=== PATIENT | male | born 1985 | race Caucasian/White ===

== ENCOUNTER 2018-04-07 13:57 | Emergency (ER) | payer MEDICAID, OTHER ==
[~2018-04-07] VITALS: Ht 368.3 cm; Wt 81.8 kg
[2018-04-07 15:25] LABS: BASOPHILS # (AUTO) 0.1 X10'3 (0-0.2); BASOPHILS % (AUTO) 1.5 % (0-1); EOSINOPHILS # (AUTO) 0.2 X10'3 (0-0.9); EOSINOPHILS % (AUTO) 2.3 % (0-6); HEMATOCRIT 47.3 % (42.0-52.0); HEMOGLOBIN 15.6 g/dl (14.0-17.9); LYMPHOCYTES # (AUTO) 1.6 X10'3 (1.1-4.8); LYMPHOCYTES % (AUTO) 20.7 % (21-51); MEAN CORPUSCULAR HEMOGLOBIN 30.3 PG (27.0-31.0); MEAN CORPUSCULAR HGB CONC 32.9 % (33.0-36.5); MEAN CORPUSCULAR VOLUME 91.9 FL (78-98); MEAN PLATELET VOLUME 7.5 FL (7.4-10.4); MONOCYTES # (AUTO) 0.7 X10'3 (0-0.9); MONOCYTES % (AUTO) 9.1 % (2-12); NEUTROPHILS # (AUTO) 5.3 X10'3 (1.8-7.7); NEUTROPHILS % (AUTO) 66.4 % (42-75); PLATELET COUNT 313 X10'3 (140-440); RED BLOOD COUNT 5.15 X10'6 (4.70-6.10); RED CELL DISTRIBUTION WIDTH 13.8 % (11.5-14.5); WHITE BLOOD COUNT 7.9 X10'3 (4.5-11.0)
[2018-04-07 15:37] LABS: ALANINE AMINOTRANSFERASE 21 U/L (12-78); ALBUMIN 4.1 G/DL (3.4-5.0); ALBUMIN/GLOBULIN RATIO 1.4 (1.1-1.5); ALKALINE PHOSPHATASE 61 IU/L (46-116); ANION GAP 8 (8-16); ASPARTATE AMINO TRANSFERASE 14 U/L (10-37); BILIRUBIN,TOTAL 0.4 MG/DL (0.1-1.0); BLOOD UREA NITROGEN 14 MG/DL (7-18); BUN/CREATININE RATIO 16.5 (5.4-32.0); CALCIUM 8.4 MG/DL (8.5-10.1); CHLORIDE 104 MMOL/L (99-107); CREATININE 0.85 MG/DL (0.60-1.10); GLUCOSE 53 MG/DL (70-104); POTASSIUM 3.5 MMOL/L (3.5-5.1); SODIUM 143 MMOL/L (135-145); TOTAL CARBON DIOXIDE 31.2 MMOL/L (24-32); TOTAL PROTEIN 7.1 G/DL (6.4-8.2); eGFR > 90 ML/MIN
[2018-04-07 15:44] LABS: ETHANOL < 0.010 GM/DL (0.0-0.010)
[2018-04-07] MEDS ORDERED: NO HOME MEDS (16:02)
[2018-04-07] MEDS ORDERED: OLANZapine 5mg rapidly disint. tablet PO ONE ×2 (17:50→22:30)
[2018-04-07 18:01] LABS: CLARITY,URINE CLEAR (Clear); COLOR,URINE YELLOW (Yellow); GLUCOSE, URINE NEGATIVE (Neg); KETONES,URINE NEGATIVE (Neg); LEUKOCYTE ESTERASE ,URINE NEGATIVE (Neg); NITRITES, URINE NEGATIVE (Neg); OCCULT BLOOD,URINE NEGATIVE (Neg); PH,URINE 6.5 (4.8-8.0); PROTEIN,URINE NEGATIVE (Neg); UROBILINOGEN,URINE 0.2 E.U/dL (0.2-1.0)
[2018-04-07 18:06] LABS: UA COLLECTION TYPE CLN CATCH MIDSTREAM
[2018-04-07 18:11] LABS: URINE AMPHETAMINE SCREEN NEGATIVE (Neg); URINE BARBITUATE SCREEN NEGATIVE (Neg); URINE BENZODIAZEPINES SCREEN POSITIVE (Neg); URINE CANNABINOID SCREEN NEGATIVE (Neg); URINE COCAINE SCREEN NEGATIVE (Neg); URINE METHADONE SCREEN NEGATIVE (Neg); URINE OPIATE SCREEN NEGATIVE (Neg); URINE PHENCYCLIDINE SCREEN NEGATIVE (Neg)
[2018-04-07] MEDS ORDERED: nicotine 21mg patch - 24 hr TD ONE (21:00)
[2018-04-08] MEDS ORDERED: OLANZapine 2.5MG tablet PO SCH (08:00)
[2018-04-08 11:21] VITALS: BP 97/64
== END 2018-04-08 09:00 ==
LOC: ER 13:57
DX: F20.89 Other schizophrenia (principal); R45.850 Homicidal ideations; F41.9 Anxiety disorder, unspecified; F32.9 Major depressive disorder, single episode, unspecified; Z56.0 Unemployment, unspecified
CPT/HCPCS: 36415; 80053; 80305; 80320; 81003; 85025; 99285

== ENCOUNTER 2018-05-27 18:32 | Emergency (ER) | payer MEDICAID, OTHER ==
[~2018-05-27] VITALS: Ht 185.4 cm; Wt 77.3 kg
[~2018-05-27 18:32] MED LIST: NO HOME MEDS
[2018-05-27 19:42] LABS: BASOPHILS # (AUTO) 0.1 X10'3 (0-0.2); BASOPHILS % (AUTO) 0.9 % (0-1); EOSINOPHILS # (AUTO) 0.3 X10'3 (0-0.9); EOSINOPHILS % (AUTO) 3.1 % (0-6); HEMATOCRIT 42.7 % (42.0-52.0); HEMOGLOBIN 14.4 g/dl (14.0-17.9); LYMPHOCYTES # (AUTO) 2.2 X10'3 (1.1-4.8); LYMPHOCYTES % (AUTO) 25.2 % (21-51); MEAN CORPUSCULAR HEMOGLOBIN 30.5 PG (27.0-31.0); MEAN CORPUSCULAR HGB CONC 33.8 % (33.0-36.5); MEAN CORPUSCULAR VOLUME 90.2 FL (78-98); MEAN PLATELET VOLUME 7.7 FL (7.4-10.4); MONOCYTES # (AUTO) 0.9 X10'3 (0-0.9); MONOCYTES % (AUTO) 10.8 % (2-12); NEUTROPHILS # (AUTO) 5.2 X10'3 (1.8-7.7); PLATELET COUNT 277 X10'3 (140-440); RED BLOOD COUNT 4.73 X10'6 (4.70-6.10); RED CELL DISTRIBUTION WIDTH 13.9 % (11.5-14.5); WHITE BLOOD COUNT 8.6 X10'3 (4.5-11.0)
[2018-05-27 19:53] LABS: ALANINE AMINOTRANSFERASE 33 U/L (12-78); ALBUMIN 3.7 G/DL (3.4-5.0); ALBUMIN/GLOBULIN RATIO 1.3 (1.1-1.5); ALKALINE PHOSPHATASE 75 IU/L (46-116); ANION GAP 8 (8-16); ASPARTATE AMINO TRANSFERASE 52 U/L (10-37); BILIRUBIN,TOTAL 0.3 MG/DL (0.1-1.0); BLOOD UREA NITROGEN 17 MG/DL (7-18); BUN/CREATININE RATIO 16.5 (5.4-32.0); CALCIUM 8.3 MG/DL (8.5-10.1); CHLORIDE 103 MMOL/L (99-107); CREATININE 1.03 MG/DL (0.60-1.10); GLUCOSE 76 MG/DL (70-104); POTASSIUM 3.4 MMOL/L (3.5-5.1); SODIUM 142 MMOL/L (135-145); TOTAL CARBON DIOXIDE 30.9 MMOL/L (24-32); TOTAL PROTEIN 6.6 G/DL (6.4-8.2); eGFR 83 ML/MIN
[2018-05-27 20:09] LABS: ETHANOL < 0.010 GM/DL (0.0-0.010)
[2018-05-27 20:39] LABS: URINE AMPHETAMINE SCREEN NEGATIVE (Neg); URINE BARBITUATE SCREEN NEGATIVE (Neg); URINE BENZODIAZEPINES SCREEN NEGATIVE (Neg); URINE CANNABINOID SCREEN POSITIVE (Neg); URINE COCAINE SCREEN NEGATIVE (Neg); URINE METHADONE SCREEN NEGATIVE (Neg); URINE OPIATE SCREEN NEGATIVE (Neg); URINE PHENCYCLIDINE SCREEN NEGATIVE (Neg)
[2018-05-27] MEDS ORDERED: potassium Cl 20 mEq SR tablet PO STA (21:28)
[2018-05-27] MEDS ORDERED: LORazepam 1 MG tablet PO ONE (21:55)
[2018-05-27 22:23] VITALS: BP 133/72
== END 2018-05-27 22:47 | disposition home or self-care (01) ==
LOC: ER 18:33
DX: F25.9 Schizoaffective disorder, unspecified (principal); E87.6 Hypokalemia; F41.9 Anxiety disorder, unspecified; F32.9 Major depressive disorder, single episode, unspecified; F15.90 Other stimulant use, unspecified, uncomplicated; Z56.0 Unemployment, unspecified
CPT/HCPCS: 36415; 80053; 80305; 80320; 84443; 85025; 99284

== ENCOUNTER 2019-02-13 15:18 | Emergency (ER) | payer MEDICAID ==
[~2019-02-13] VITALS: Ht 185.4 cm; Wt 85.9 kg
[~2019-02-13 15:18] MED LIST changes: +CLOT15CR5 TOP; +CLOT15CR73 TP
[2019-02-13 15:25] VITALS: BP 152/95
[2019-02-13] MEDS ORDERED: ibuprofen tablet 400 MG TABLET PO ONE (15:35)
[2019-02-13] MEDS ORDERED: CLOT15CR73 TP (15:36)
--- NOTE | 2019-02-13 16:05 | NUR ---
Pt seen, assessed, and treated in triage by PA. Medicated by RN and discharged from [facility].
== END 2019-02-13 16:06 | disposition home or self-care (01) ==
LOC: ER 15:19
DX: M79.672 Pain in left foot (principal); M79.671 Pain in right foot; F41.9 Anxiety disorder, unspecified; F32.9 Major depressive disorder, single episode, unspecified; F20.9 Schizophrenia, unspecified; F12.90 Cannabis use, unspecified, uncomplicated; F15.90 Other stimulant use, unspecified, uncomplicated; F10.99 Alcohol use, unspecified with unspecified alcohol-induced disorder; Z56.0 Unemployment, unspecified; Z88.8 Allergy status to other drugs, medicaments and biological substances; Z79.899 Other long term (current) drug therapy; Y90.9 Presence of alcohol in blood, level not specified
CPT/HCPCS: 99283

== ENCOUNTER 2019-03-02 14:59 | Emergency (ER) | payer MEDICAID | END 2019-03-02 16:07 | disposition left against medical advice (07) | LOC: ER 15:00 | DX: M79.673 Pain in unspecified foot (principal); Z53.21 Procedure and treatment not carried out due to patient leaving prior to being seen by health care provider; Z79.899 Other long term (current) drug therapy ==

== ENCOUNTER 2019-07-01 04:52 | Emergency (ER) | payer MEDICAID, OTHER ==
[~2019-07-01] VITALS: Ht 185.4 cm; Wt 81.8 kg
[2019-07-01] MEDS ORDERED: ondansetron 4mg rapidly disintigrating tab PO ONE (05:00)
[2019-07-01] MEDS ORDERED: AZIT-63 PO (05:04)
[2019-07-01] MEDS ORDERED: BENZ-16 PO (05:04)
[2019-07-01] MEDS ORDERED: azithromycin 250mg tablet PO ONE (05:05)
[2019-07-01] MEDS ORDERED: benzonatate 100mg capsule PO ONE (05:05)
[2019-07-01 05:35] VITALS: BP 133/82
== END 2019-07-01 05:38 | disposition home or self-care (01) ==
LOC: ER 04:53
DX: J06.9 Acute upper respiratory infection, unspecified (principal); R11.0 Nausea; F41.9 Anxiety disorder, unspecified; F32.9 Major depressive disorder, single episode, unspecified; F20.9 Schizophrenia, unspecified; F12.90 Cannabis use, unspecified, uncomplicated; F15.90 Other stimulant use, unspecified, uncomplicated; Z88.8 Allergy status to other drugs, medicaments and biological substances; Z79.2 Long term (current) use of antibiotics; Z79.899 Other long term (current) drug therapy; Z59.0 Homelessness; Z56.0 Unemployment, unspecified
CPT/HCPCS: 99284

== ENCOUNTER 2019-07-10 02:22 | Emergency (ER) | payer MEDICAID, OTHER ==
[~2019-07-10] VITALS: Ht 185.4 cm; Wt 81.8 kg
[~2019-07-10 02:22] MED LIST changes: +AZIT-63 PO; +BENZ-16 PO
[2019-07-10 02:32] VITALS: BP 130/87
[2019-07-10] MEDS ORDERED: PRED20TA PO (02:50)
[2019-07-10] MEDS ORDERED: ALBU18HF2 INH (02:50)
[2019-07-10] MEDS ORDERED: DOXY100C43 PO (02:50)
== END 2019-07-10 03:09 | disposition home or self-care (01) ==
LOC: ER 02:23
DX: J20.9 Acute bronchitis, unspecified (principal); F12.90 Cannabis use, unspecified, uncomplicated; F41.9 Anxiety disorder, unspecified; F32.9 Major depressive disorder, single episode, unspecified; F15.90 Other stimulant use, unspecified, uncomplicated; F17.298 Nicotine dependence, other tobacco product, with other nicotine-induced disorders; Z59.0 Homelessness; Z56.0 Unemployment, unspecified; Z88.8 Allergy status to other drugs, medicaments and biological substances; Z79.2 Long term (current) use of antibiotics; Z79.899 Other long term (current) drug therapy
CPT/HCPCS: 99283; 99406

== ENCOUNTER 2019-07-10 17:20 | Emergency (ER) | payer MEDICAID, OTHER ==
[~2019-07-10] VITALS: Ht 185.4 cm; Wt 72.0 kg
[~2019-07-10 17:20] MED LIST changes: +ALBU18HF2 INH; +DOXY100C43 PO; +PRED20TA PO
--- NOTE | 2019-07-10 18:54 | NUR ---
FILLED OUT INDIGENT MED FORM FOR PHARMACY.
[2019-07-10 19:21] VITALS: BP 126/89
== END 2019-07-10 19:23 | disposition home or self-care (01) ==
LOC: ER 17:20
DX: J20.9 Acute bronchitis, unspecified (principal); Z76.0 Encounter for issue of repeat prescription; F41.9 Anxiety disorder, unspecified; F32.9 Major depressive disorder, single episode, unspecified; F12.90 Cannabis use, unspecified, uncomplicated; F15.90 Other stimulant use, unspecified, uncomplicated; Z59.0 Homelessness; Z56.0 Unemployment, unspecified; Z88.8 Allergy status to other drugs, medicaments and biological substances; Z79.2 Long term (current) use of antibiotics; Z79.899 Other long term (current) drug therapy
CPT/HCPCS: 99281

== ENCOUNTER 2019-08-15 02:34 | Emergency (ER) | payer MEDICAID, OTHER ==
[~2019-08-15] VITALS: Ht 185.4 cm; Wt 81.1 kg
[~2019-08-15 02:34] MED LIST changes: -AZIT-63 PO; -BENZ-16 PO; -DOXY100C43 PO; -PRED20TA PO
[2019-08-15 02:35] VITALS: BP 134/88
--- NOTE | 2019-08-15 02:43 | NUR ---
Patient was getting his ekg and he was asked to hold still. He then said. "Can you guys give me a blanket or something. Or, like, something to chill me out." We asked him to hold still for the ekg and he then said "Well....you technically work for me." He was informed that this was not how any of this worked and his attitude and words to staff are not appreciated. informed.
== END 2019-08-15 02:53 | disposition home or self-care (01) ==
LOC: ER 02:35
DX: R53.1 Weakness (principal); F41.9 Anxiety disorder, unspecified; F32.9 Major depressive disorder, single episode, unspecified; F20.9 Schizophrenia, unspecified; F12.90 Cannabis use, unspecified, uncomplicated; F15.90 Other stimulant use, unspecified, uncomplicated; Z59.0 Homelessness; Z56.0 Unemployment, unspecified; Z88.8 Allergy status to other drugs, medicaments and biological substances; Z79.899 Other long term (current) drug therapy
CPT/HCPCS: 93005; 99283

== ENCOUNTER 2020-06-15 18:03 | Emergency (ER) | payer MEDICAID, OTHER ==
[~2020-06-15] VITALS: Ht 185.4 cm; Wt 81.8 kg
[~2020-06-15 18:03] MED LIST changes: +CLOT15CR35 TOP; -CLOT15CR5 TOP
[2020-06-15 18:13] VITALS: BP 153/109
== END 2020-06-15 19:12 | disposition home or self-care (01) ==
LOC: ER 18:03
DX: R09.89 Other specified symptoms and signs involving the circulatory and respiratory systems (principal); R51.9 Headache, unspecified; R43.8 Other disturbances of smell and taste; Z20.828 Contact with and (suspected) exposure to other viral communicable diseases; F41.9 Anxiety disorder, unspecified; F32.9 Major depressive disorder, single episode, unspecified; F20.9 Schizophrenia, unspecified; F12.90 Cannabis use, unspecified, uncomplicated; F15.90 Other stimulant use, unspecified, uncomplicated; Z72.89 Other problems related to lifestyle; Z56.0 Unemployment, unspecified; Z88.8 Allergy status to other drugs, medicaments and biological substances; Z79.2 Long term (current) use of antibiotics; Z79.899 Other long term (current) drug therapy
CPT/HCPCS: 36415; 99282; 99283

== ENCOUNTER 2021-04-16 02:29 | Emergency (ER) | payer MEDICAID ==
[~2021-04-16] VITALS: Ht 185.4 cm; Wt 100.0 kg
[2021-04-16 03:08] VITALS: BP 117/90
== END 2021-04-16 09:34 | disposition left against medical advice (07) ==
LOC: ER 02:30
DX: M79.10 Myalgia, unspecified site (principal); Z53.21 Procedure and treatment not carried out due to patient leaving prior to being seen by health care provider

== ENCOUNTER 2021-04-16 22:01 | Emergency (ER) | payer MEDICAID ==
[~2021-04-16] VITALS: Ht 185.4 cm; Wt 100.0 kg
[2021-04-17 02:39] VITALS: BP 139/91
== END 2021-04-17 03:07 | disposition left against medical advice (07) ==
LOC: ER 22:02
DX: F41.9 Anxiety disorder, unspecified (principal); R10.9 Unspecified abdominal pain; G47.00 Insomnia, unspecified; F31.9 Bipolar disorder, unspecified; F20.9 Schizophrenia, unspecified; Z88.8 Allergy status to other drugs, medicaments and biological substances
CPT/HCPCS: 99281

== ENCOUNTER 2022-09-13 01:01 | Emergency (ER) | payer MEDICAID ==
[~2022-09-13] VITALS: Ht 185.4 cm; Wt 90.9 kg
[2022-09-13 01:16] VITALS: BP 141/95
== END 2022-09-13 02:05 | disposition left against medical advice (07) ==
LOC: ER 01:02
DX: R21 Rash and other nonspecific skin eruption (principal); Z53.21 Procedure and treatment not carried out due to patient leaving prior to being seen by health care provider
CPT/HCPCS: 99281

== ENCOUNTER 2022-10-03 04:25 | Emergency (ER) | payer MEDICAID ==
[~2022-10-03] VITALS: Ht 170.2 cm; Wt 70.0 kg
[2022-10-03] MEDS ORDERED: TETanus/Pertussis (Acell)/Diphther VAC/PF (Tdap-Adult) 0.5ml syringe IMVAC ONE (05:00)
[2022-10-03] MEDS ORDERED: AMOX-117 PO (05:25)
[2022-10-03 06:06] VITALS: BP 130/84
== END 2022-10-03 06:08 ==
LOC: ER 04:25
DX: S41.011A Laceration without foreign body of right shoulder, initial encounter (principal); W54.0XXA Bitten by dog, initial encounter; Y93.89 Activity, other specified; Y92.89 Other specified places as the place of occurrence of the external cause; Y99.8 Other external cause status
CPT/HCPCS: 73060; 73130; 90471; 90715; 99284; A6446; A6449

== ENCOUNTER 2024-03-04 11:51 | Emergency (ER) | payer MEDICAID ==
[~2024-03-04] VITALS: Ht 180.3 cm; Wt 74.3 kg
[2024-03-04 11:53] VITALS: BP 155/89; PULSE 92; RESP 16; TEMP 99.2; O2SAT 98
== END 2024-03-04 12:11 | disposition left against medical advice (07) ==
LOC: ER 11:51
DX: F22 Delusional disorders (principal); Z76.0 Encounter for issue of repeat prescription; Z88.8 Allergy status to other drugs, medicaments and biological substances; Z53.21 Procedure and treatment not carried out due to patient leaving prior to being seen by health care provider

== ENCOUNTER 2024-07-19 14:34 | Emergency (ER) | payer MEDICAID ==
[~2024-07-19] VITALS: Ht 188 cm; Wt 97.0 kg
[2024-07-19] MEDS ORDERED: AMOX100S4 PO (16:11)
[2024-07-19] MEDS ORDERED: POLY119P2 PO (16:11)
[2024-07-19] MEDS ORDERED: PRED15SO71 PO (16:11)
[2024-07-19 16:21] VITALS: BP 120/66; PULSE 88; RESP 16; TEMP 98.9; O2SAT 98
== END 2024-07-19 16:22 | disposition home or self-care (01) ==
LOC: ER 14:36
DX: J02.9 Acute pharyngitis, unspecified (principal); K59.00 Constipation, unspecified; F20.9 Schizophrenia, unspecified; F41.9 Anxiety disorder, unspecified; F32.A Depression, unspecified; F12.90 Cannabis use, unspecified, uncomplicated; F15.90 Other stimulant use, unspecified, uncomplicated; Z88.8 Allergy status to other drugs, medicaments and biological substances; Z79.899 Other long term (current) drug therapy; Z72.89 Other problems related to lifestyle; Z56.0 Unemployment, unspecified
CPT/HCPCS: 99283